=== PATIENT | male | born 1975 | race Caucasian/White ===

== ENCOUNTER 2021-04-23 23:42 | Emergency (ER) | payer OTHER ==
[~2021-04-23] VITALS: Ht 193 cm; Wt 140.6 kg
[2021-04-24 00:34] LABS: HEMATOCRIT 40.4 % (42.0-52.0); HEMOGLOBIN 13.6 gm/dL (14.0-18.0); MCH 28.3 pg (26.0-34.0); MCHC 33.8 g/dL (28.0-37.0); MCV 83.9 fL (80.0-100.0); MPV 8.6 fl. (7.2-11.1); RBC 4.81 mil/uL (4.50-6.00); WBC 9.9 thou/uL (4.0-11.0)
[2021-04-24 00:44] LABS: CALCIUM 8.5 mg/dL (8.5-10.1); CREATININE 1.3 mg/dL (0.6-1.3); POTASSIUM 3.8 mmol/L (3.5-5.1); URINE BILIRUBIN NEGATIVE (Negative); URINE BLOOD 3+ (Negative); URINE CLARITY CLEAR; URINE COLOR YELLOW; URINE GLUCOSE-RANDOM NEGATIVE (Negative); URINE KETONES NEGATIVE (Negative); URINE LEUKOCYTES-REFLEX NEGATIVE (Negative); URINE NITRITE-REFLEX NEGATIVE (Negative); URINE PROTEIN 1+ (Negative); URINE SPECIFIC GRAVITY >= 1.030 (1.005-1.030); URINE UROBILINOGEN 0.2 E.U./dl (0.2-1.0)
[2021-04-24 00:48] LABS: ALBUMIN 3.7 g/dL (3.4-5.0); TOTAL BILIRUBIN 0.2 mg/dL (<0.1-1.0); TOTAL PROTEIN 7.5 g/dL (6.4-8.2)
[2021-04-24 01:10] LABS: MUCUS 0-3 Light strn/LPF (None Seen); SQUAMOUS 0-3 Few /LPF (0-3)
[2021-04-24 01:11] LABS: HYALINE CASTS 0-3 Few /LPF (None Seen); URINE WBC-REFLEX 0-5 Rare /HPF (0-5)
[2021-04-24 01:12] LABS: BACTERIA-REFLEX 1-9 Few /HPF (None Seen); CRYSTALS None Seen /LPF (None Seen)
[2021-04-24] MEDS ORDERED: ZOFRAN ODT4 MG PO (03:26)
[2021-04-24] MEDS ORDERED: HYDROCODON-ACE1 EAC7 PO (03:26)
[2021-04-24] MEDS ORDERED: FLOMAX0.4 MG PO (03:26)
[2021-04-24 03:39] VITALS: BP 147/86
== END 2021-04-24 03:40 | disposition home or self-care (01) ==
LOC: M.ERS 23:42
PROVIDERS: Personal Emergency Response Attendant
DX: N13.2 Hydronephrosis with renal and ureteral calculous obstruction (principal); R11.2 Nausea with vomiting, unspecified

== ENCOUNTER 2021-06-02 11:30 | Emergency (ER) | payer OTHER ==
[~2021-06-02] VITALS: Ht 193 cm; Wt 140.6 kg
[~2021-06-02 11:30] MED LIST: FLOMAX0.4 MG PO; HYDROCODON-ACE1 EAC7 PO; ZOFRAN ODT4 MG PO
[2021-06-02 12:21] LABS: ABSOLUTE EOSINOPHILS 0.1 thou/uL (0.0-0.7); ABSOLUTE LYMPHOCYTES 1.3 thou/uL (0.8-5.3); ABSOLUTE MONOCYTES 0.7 thou/uL (0.0-1.2); ABSOLUTE NEUTROPHILS 9.1 thou/uL (1.6-8.1); BASOPHILS 0.3 %; EOSINOPHILS 0.7 %; HEMATOCRIT 42.2 % (42.0-52.0); HEMOGLOBIN 14.2 gm/dL (14.0-18.0); MCH 28.3 pg (26.0-34.0); MCHC 33.7 g/dL (28.0-37.0); MONOCYTES 5.8 %; MPV 8.5 fl. (7.2-11.1); NUCLEATED RBCS 0 /100WBC; PLATELET COUNT* 244 thou/uL (150-400); POLYS 81.2 %; RBC 5.03 mil/uL (4.50-6.00); WBC 11.2 thou/uL (4.0-11.0)
[2021-06-02 12:31] LABS: CALCIUM 9.2 mg/dL (8.5-10.1); CREATININE 1.1 mg/dL (0.6-1.3); POTASSIUM 4.8 mmol/L (3.5-5.1)
[2021-06-02 12:35] LABS: ALBUMIN 3.9 g/dL (3.4-5.0); TOTAL BILIRUBIN 0.4 mg/dL (<0.1-1.0); TOTAL PROTEIN 7.8 g/dL (6.4-8.2)
[2021-06-02 13:16] LABS: URINE BILIRUBIN NEGATIVE (Negative); URINE BLOOD 3+ (Negative); URINE CLARITY CLEAR; URINE COLOR YELLOW; URINE GLUCOSE-RANDOM TRACE (Negative); URINE KETONES 1+ (Negative); URINE LEUKOCYTES-REFLEX NEGATIVE (Negative); URINE NITRITE-REFLEX NEGATIVE (Negative); URINE PROTEIN NEGATIVE (Negative); URINE SPECIFIC GRAVITY 1.025 (1.005-1.030); URINE UROBILINOGEN 0.2 E.U./dl (0.2-1.0)
[2021-06-02 13:33] LABS: SQUAMOUS 0-3 Few /LPF (0-3)
[2021-06-02 13:34] LABS: BACTERIA-REFLEX None Seen /HPF (None Seen); CASTS None Seen /LPF (None Seen); MUCUS None Seen strn/LPF (None Seen); URINE RBC 3-10 Few /HPF (0-2); URINE WBC-REFLEX None Seen /HPF (0-5)
[2021-06-02 13:35] LABS: CRYSTALS None Seen /LPF (None Seen)
[2021-06-02] MEDS ORDERED: ZOFRAN ODT4 MG DISSOLVE (14:09)
[2021-06-02] MEDS ORDERED: FLOMAX0.4 MG PO (14:09)
[2021-06-02] MEDS ORDERED: HYDROCODON-ACE1 EAC7 PO (14:09)
[2021-06-02 14:23] VITALS: BP 144/84
== END 2021-06-02 14:24 | disposition home or self-care (01) ==
LOC: M.ERS 11:30
PROVIDERS: Emergency Medicine Emergency Medical Services
DX: N20.0 Calculus of kidney (principal)

== ENCOUNTER 2021-06-06 17:07 | Inpatient (IN) | payer OTHER ==
[~2021-06-06] VITALS: Ht 193 cm; Wt 144.2 kg
--- NOTE | ~2021-06-06 | OP ---
[address] [address] OPERATIVE REPORT Name: ARMANDO BUTTERFIELD Room: [address] IN M.R.#: [id number] Admission: 06/06/21 Attend Phys: Arvin Vieira Discharge: 06/08/21 Date of : 71 Report #: [id number] THIS REPORT FOR: cc: Sergio Gunter MD, Michael S. MD Haggard, Kent L MD ~ DATE OF SURGERY: 06/08/2021 PREOPERATIVE DIAGNOSES: Steinstrasse distal left ureter and a 5 mm proximal left ureteral stone. POSTOPERATIVE DIAGNOSES: Steinstrasse distal left ureter and a 5 mm proximal left ureteral stone. PROCEDURES: Cystoscopy, left retrograde pyelogram, left ureteroscopy with stone extraction, placement of left ureteral stent. STAFF SURGEON: Hemant Amin MD COMMERCIAL FISHERMAN: None. ANESTHESIA: General. ESTIMATED BLOOD LOSS: None. COMPLICATIONS: None. SPECIMEN: Left ureteral stone fragments. DRAINS: A 28 cm x 4.8-Kazakh left ureteral stent. INDICATIONS: The patient is a 46-year-old white male who had undergone ESWL of a 10 mm left UPJ stone on 05/31/[address] Brothers. He subsequently presented to [facility] on 06/07/2021. CT scan confirmed steinstrasse of distal left ureter of 1.4 cm in length and another 5 mm left UPJ stone present. He was counseled regarding treatment options, elected for a definitive cystoscopy, left retrograde pyelogram, left ureteroscopy, possible holmium laser lithotripsy, possible placement of left ureteral stent. After risks and benefits of the procedure were explained, informed consent was obtained. DESCRIPTION OF PROCEDURE: The patient was taken to the operating room, comfortably placed in the dorsal lithotomy position under adequate general anesthesia. He was sterilely prepped and draped in standard fashion exposing only the genitalia. He received his antibiotic therapy as prescribed. Appropriate time-out was carried out and all were in agreement. A 22-Kazakh cystoscope was placed into the urethra. [place] [address] OPERATIVE REPORT Name: ARMANDO BUTTERFIELD Room: [address] IN [facility].#: [id number] Admission: 06/06/21 Attend Phys: Arvin Vieira Discharge: 06/08/21 Date of : 71 Report #: [id number] was intact. Prostate showed minimal hyperplasia. Bladder was systematically viewed. Both ureteral orifices were identified, normal. No bladder calculi seen or foreign body observed. Mucosa was smooth, appeared to have some stones seen through the left ureteral orifice. An 8-Kazakh cone-tipped catheter placed in the left ureteral orifice and a retrograde pyelogram performed showing multiple filling defects in the distal left ureter and a mildly dilated system all the way up to the level of kidney. An 0.035 Glidewire was gently placed up the left ureter at the level of kidney. The cystoscope was removed and a 4.5-Kazakh tapered to a 6.5-Kazakh Morales semirigid ureteroscope was gently placed through the urethra up the left ureter, saw multiple stone fragments there. See picture for details. I went ahead and turned the flow way down and slowly migrated up the left ureter to see if I can capture the proximal left ureteral stone in place. By the time I got up there, did not see a stone at the ureteropelvic junction or within the renal pelvis. It migrated down next to the other stones or may have migrated back into the kidney. The semirigid scope was removed back in the distal ureter where the stones were present. A 2.4-Kazakh flat wire basket was used to sequentially remove several of the fragments in 4 separate passes just removing in small intervals just to gently remove out through the urethra, collect the specimen and place back through the urethra up the left ureter until all the stone fragments were removed. Repeat ureteroscopy showed no damage to the ureter, so tiny little fragments, too small to even grasp were seen. The semirigid scope was removed. Cystoscope backloaded over the guidewire and a 28 cm x 4.8-Kazakh ureteral stent was put in place, positioned with a good coil in the left renal pelvis, good coil in the bladder. Bladder was drained, cystoscope was then removed. He tolerated the procedure extremely well. He was extubated in the operating room, transferred to [facility] with assistance and went to recovery in stable condition. We will see him back next week in our office to have the stent removed and 6 weeks with a renal ultrasound and KUB. He may follow up with Dr. Brothers if he so desires. By: [id number] Amin MD /destiny
[~2021-06-06 17:07] MED LIST changes: +ZOFRAN ODT4 MG DISSOLVE
[2021-06-06 17:17] VITALS: BP 176/116
[2021-06-06 19:57] LABS: URINE BILIRUBIN NEGATIVE (Negative); URINE BLOOD 2+ (Negative); URINE COLOR YELLOW; URINE GLUCOSE-RANDOM NEGATIVE (Negative); URINE KETONES NEGATIVE (Negative); URINE LEUKOCYTES NEGATIVE (Negative); URINE NITRITE NEGATIVE (Negative); URINE PROTEIN 1+ (Negative); URINE SPECIFIC GRAVITY 1.025 (1.005-1.030); URINE UROBILINOGEN 0.2 E.U./dl (0.2-1.0)
[2021-06-06 19:58] LABS: URINE CLARITY HAZY
[2021-06-06 19:59] LABS: ABSOLUTE EOSINOPHILS 0.1 thou/uL (0.0-0.7); ABSOLUTE LYMPHOCYTES 1.1 thou/uL (0.8-5.3); ABSOLUTE MONOCYTES 1.1 thou/uL (0.0-1.2); ABSOLUTE NEUTROPHILS 9.4 thou/uL (1.6-8.1); BASOPHILS 0.2 %; EOSINOPHILS 0.6 %; HEMATOCRIT 38.6 % (42.0-52.0); HEMOGLOBIN 12.8 gm/dL (14.0-18.0); LYMPHOCYTES 9.1 %; MCH 27.8 pg (26.0-34.0); MCHC 33.3 g/dL (28.0-37.0); MCV 83.6 fL (80.0-100.0); MONOCYTES 9.2 %; MPV 7.8 fl. (7.2-11.1); NUCLEATED RBCS 0 /100WBC; PLATELET COUNT* 248 thou/uL (150-400); POLYS 80.9 %; RBC 4.62 mil/uL (4.50-6.00); RDW-CV 14.1 % (10.5-14.5); WBC 11.6 thou/uL (4.0-11.0)
[2021-06-06 20:05] LABS: CREATININE 1.7 mg/dL (0.6-1.3); POTASSIUM 3.9 mmol/L (3.5-5.1)
[2021-06-06 20:09] LABS: ALBUMIN 3.4 g/dL (3.4-5.0); TOTAL BILIRUBIN 0.4 mg/dL (<0.1-1.0); TOTAL PROTEIN 7.6 g/dL (6.4-8.2)
[2021-06-06 20:25] LABS: BACTERIA None Seen /HPF (None Seen); CASTS None Seen /LPF (None Seen); CRYSTALS None Seen /LPF (None Seen); MUCUS None Seen strn/LPF (None Seen); SQUAMOUS NONE SEEN /LPF (0-3); URINE RBC 3-10 Few /HPF (0-2); URINE WBC None Seen /HPF (0-5)
[2021-06-07] VITALS (7 sets, daily range): BP systolic 147–175; BP diastolic 80–106
--- NOTE | 2021-06-07 19:47 | NUR ---
PT ADMITTED FROM THE BOARD IN THE ER. PT UP AD FARHAT IN HIS ROOM AND HALLWAYS, VSS AFEBRILE. WILL CONTINUE TO MONIRTOR PLAN OF CARE.
[2021-06-08 03:56] LABS: HEMATOCRIT 35.8 % (42.0-52.0); MCH 28.3 pg (26.0-34.0); MCHC 33.5 g/dL (28.0-37.0); MCV 84.3 fL (80.0-100.0); MPV 7.9 fl. (7.2-11.1); RBC 4.25 mil/uL (4.50-6.00); WBC 11.2 thou/uL (4.0-11.0)
[2021-06-08 03:59] LABS: CALCIUM 8.4 mg/dL (8.5-10.1); CREATININE 1.7 mg/dL (0.6-1.3); POTASSIUM 4.2 mmol/L (3.5-5.1)
[2021-06-08 08:00] VITALS: BP 146/86
--- NOTE | 2021-06-08 08:02 | NUR ---
PATIENT HAS SLEPT OFF AND ON DURING THE NIGHT. VSS ON RA. PAIN MEDICATION GIVEN ORDERED VIA IV PUSH FOR C/O LEFT FLANK PAIN. URINE STRAINED DURING SHIFT WITH NO STONE RETRIEVAL. PATIENT HAS REMAINED NPO SINCE MIDNIGHT D/T SCHEDULED PROCEDURE TODAY. IV IN RIGHT WRIST- NS @ 100ML/HR. PATIENT INSTRUCTED TO USE CALL LIGHT WHEN NEEDING ASSISTANCE. HOURLY ROUNDS MADE. WILL CONTINUE WITH PLAN OF CARE AND NURSING TO MONITOR.
--- NOTE | 2021-06-08 12:55 | NUR ---
PT DOWN FOR SURGERY AT 1235 PER BED. EKG COMPLETED.
[2021-06-08 16:21] VITALS: BP 146/86
--- NOTE | 2021-06-08 16:29 | NUR ---
CM ASSESSMENT ASSESSMENT COMPLETED WITH PT WHO WAS ALERT AND ORIENTED. PT LIVES IN HOME WITH AND CHILDREN. PT HAS NO HX OF DME, PT INDEPENDENT WITH ADLS, PT HAS NO HX OF SKILLED, REHAB, OR HH SERVICES. WHEN MED CLEAR, PT TO DC HOME WITH NO CM NEEDS NOTED.
--- NOTE | 2021-06-08 17:19 | NUR ---
PT DISCHARGED HOME WITH ALL BELONGINGS ACCOMPANIED BY HIS . PT HAS A GREAT UNDERSTANDING OF ALL DISCHARGE INSTRUCTIONS AND HOW TO TAKE HIS PAIN MEDICATIONS. SALINE LOCK REMOVED HUB INTACT. PT DENIED PAIN ON DISMISSAL.
--- NOTE | 2021-06-09 09:28 | EKG ---
[place] [address] ELECTROCARDIOGRAM REPORT Name: GREERARMANDO ERIBERTO Room: [address] DIS IN M.R.#: [id number] Admission: 06/06/21 Attend Phys: Jacky Young Discharge: 06/08/21 Date of : 71 Date of Service: 06/08/21 0934 Report #: [id number] THIS REPORT FOR: //name// [facility] Test Date: 2021-06-08 Test Time: 09:34:26 Pat Name: ARMANDO BUTTERFIELD Department: Room: [address] Gender: M Manager Financial Planning: shea : 1975 Requested By: Hemant Amin Order Number: [id number] Reading MD: Eliazar Padilla Measurements Intervals Left Hand Rate: 75 P: 30 AR: 182 QRS: 16 QRSD: 103 T: 47 QT: 387 QTc: 433 Interpretive Statements Sinus rhythm RSR' in V1 or V2, right VCD or RVH No previous ECG available for comparison Electronically Signed On 06-09-2021 9:28:09 DANCE THERAPIST by Eliazar Padilla [email or web address] <ELECTRONICALLY SIGNED> By: Wander Padilla MD, [facility] 06/09/2128 Wander Padilla MD, [facility] /EPI
--- NOTE | 2021-06-11 16:06 | PATH ---
[address] [address] PATHOLOGY RPT PROCEDURE Name: ARMANDO BUTTERFIELD Room: [address] IN M.R.#: [id number] Admission: 06/06/21 Date of : 71 Discharge: 06/08/21 Report #: [id number] Path Case #: [id number] [facility] Accession Number: [id number] . 01 Material submitted: . ureter - URETERAL STONES . 01 Clinical history: . CYSTO W/ URETEROSCOPY, STONE MANIPULATION, STENT URETERAL STONE . 02 Diagnosis: Ureteral calculi: - Consistent with calculi. - The specimen is sent out for further processing. Report pending outside analysis with results to follow in an addendum. [facility] 06/11/2021 1119 Local . 02 Electronically signed: . Roseann Galdamez MD, Pathologist NPI- [id number] . 01 Gross description: . The specimen is received fresh, labeled "Dyer, Christopher, ureteral stones". Received are multiple light quezada-yellow calculi ranging from 0.3 x 0.2 x 0.2 cm to 0.3 x 0.3 x 0.3 cm. The specimen is forwarded to sendouts for further processing. ([facility]; 06/11/2021) [facility] 06/11/2021 1112 Local . 02 Pathologist provided ICD-10: N20.1 . 02 CPT . 584244 Specimen Comment: A courtesy copy of this report has been sent to [phone], [phone] Specimen Comment: [phone], Specimen Comment: Report sent to , DR BEE / DR RUSSELL Performed at: 01 [facility] [address] [id number] MD Noel Dozier MD Phone: [phone] Performed at: 02 [facility] [address] [id number] MD Bj Howard MD Phone: [phone]
== END 2021-06-08 16:38 | disposition home or self-care (01) | DRG 661 ==
LOC: M.ERS 17:07 → M.TBA-ER 22:46 → M.3W 06-07 17:21
PROVIDERS: Internal Medicine; Physician Assistant; ADMIT Internal Medicine; ATTEND Internal Medicine
PROC: 0TC78ZZ Extirpation of Matter from Left Ureter, Via Natural or Artificial Opening Endoscopic (ICD-10-PCS; principal; 2021-06-08)
PROC: BT1F1ZZ Fluoroscopy of Left Kidney, Ureter and Bladder using Low Osmolar Contrast (ICD-10-PCS; principal; 2021-06-08)
PROC: 0T778DZ Dilation of Left Ureter with Intraluminal Device, Via Natural or Artificial Opening Endoscopic (ICD-10-PCS; principal; 2021-06-08)
DX: N13.2 Hydronephrosis with renal and ureteral calculous obstruction (principal); Z20.822 Contact with and (suspected) exposure to COVID-19; N17.9 Acute kidney failure, unspecified; I10 Essential (primary) hypertension; K59.00 Constipation, unspecified